=== PATIENT | male | born 1960 | race Caucasian/White ===

== ENCOUNTER 2017-11-19 19:06 | Emergency (ER) | payer BC ==
[2017-11-19] MEDS: LIDOCAINE WITH 8.4% SOD BICARB 3 ML DISP.SYRIN. INJ ×2 (19:58)
[2017-11-19] MEDS: DIPHTH,PERTUSS(ACELL),TET TOX 0.5 ML DISP.SYRIN. VAX IM ×2 (19:58)
== END 2017-11-19 20:40 | disposition home or self-care (01) ==
LOC: ER 19:06
DX: S71.152A Open bite, left thigh, initial encounter (principal); S40.812A Abrasion of left upper arm, initial encounter; Z88.0 Allergy status to penicillin; W54.0XXA Bitten by dog, initial encounter; Y93.89 Activity, other specified; Y92.89 Other specified places as the place of occurrence of the external cause; Y99.8 Other external cause status
CPT/HCPCS: 90471; 90715; 99283-25